=== PATIENT | male | born 1955 | race Caucasian/White ===

== ENCOUNTER 2022-03-05 09:55 | Inpatient (IN) ==
[2022-03-05] MEDS ORDERED: ASPIRIN CHEW 324 MG PO STA (10:09)
[2022-03-05] MEDS ORDERED: SODIUM CHLORIDE 0.9% 500 ML IV STA (10:09)
--- NOTE | 2022-03-05 10:26 | Emergency Department Note ---
Impression & Plan Chest pain, BRYANT (dyspnea on exertion), Symptomatic bradycardia ED Provider Note NAME: CARLOS VIDES AGE: 67 SEX: M : 1955 ARRIVES VIA: Walk-In INFORMANT: Patient, ED PROVIDER(S): Jarvis Porter DO CHIEF COMPLAINT: Shortness of breath HPI: The patient is a 67-year-old male who presented to the emergency department for an evaluation of shortness of breath. The patient states has been noticing shortness of breath with exertion over the course of the last week. He denies having any lower extremity swelling or pain. He has no abdominal pain. He has had no recent illnesses including nausea vomiting or diarrhea. The patient states he also noticed a headache as well as chest pain which went down his left arm today. This is a new symptom for him so he came to the emergency department. He denies having any recent tick bites. He said no recent rashes. He normally states his heart rate is not slow. The patient has no new medications. He has been compliant with his other outpatient medications otherwise. ROS: See above HPI for pertinent positives & negatives. A total of 10 systems reviewed and were otherwise negative. PAST MEDICAL HISTORY: See Below PAST SURGICAL HISTORY: See Below FAMILY HISTORY: See Below SOCIAL HISTORY: See Below HOME MEDICATIONS: See Below ALLERGIES: See Below VITALS: See Below PHYSICAL EXAMINATION: GENERAL: Patient is awake alert in no acute distress patient is resting comfortably and showing no signs of anxiety EYES: The conjunctivae are clear. The pupils are round and reactive. EARS, NOSE, MOUTH AND THROAT: The nose is without any evidence of any deformity. Mucous membranes are moist. Tongue is midline. NECK: The neck is nontender and supple. RESPIRATORY: Normal respiratory effort is noted there is no evidence of wheezing rhonchi or rales CARDIOVASCULAR: Bradycardic heart sounds were noted. There is no definite murmur. Ectopy was noted auscultation. GASTROINTESTINAL: The abdomen is soft. Abdomen is nontender. MUSCULOSKELETAL/EXTREMITIES: There is no evidence of gross deformity full range of motion is noted in the hips and shoulders. SKIN: There is no obvious evidence of any rash. Pedal edema was noted bilaterally. Pulses are symmetric in both wrists and ectopy is being conducted. NEUROLOGIC: Patient is awake alert and oriented x3 MEDICAL DECISION MAKING: The patient is a 67-year-old male who presented to the emergency department because of shortness of breath. The patient was found to have bradycardia with frequent PVCs. I discussed the patient's laboratory and radiographic studies with him. I also discussed the limitations of the emergency room work-up for chest pain with the patient. I discussed his condition with the on-call [facility] cardiology. The patient was evaluated in the emergency department by the [facility] ticker wirer. He was felt to be a good candidate for cardiac catheterization to further evaluate his presentation. I also discussed his case with the on-call [facility] hospitalist group. They have agreed to evaluate the patient for further management and disposition. The patient was resting comfortably. He was treated with aspirin and placed on the transcutaneous pacemaker. Triage Nursing notes reviewed. Prior medical records reviewed Vital Signs: reviewed and remarkable for elevated blood pressure. Differential diagnosis: Reactive airway disease, pneumonia, pneumothorax, COPD, CHF, infections, cardiac ischemia, pulmonary embolism, musculoskeletal, gastrointestinal, as well as other pathologies. ER treatment provided: See below Diagnostics interpreted by me: ECG: EKG was obtained in the emergency department. My interpretation is sinus bradycardia at 62 bpm. Bigeminy was noted. There is no acute ST segment abnormalities noted. This was compared to a tracing from December 06, 2018. The bradycardia is new compared to the previous tracing. Cardiac Monitoring: An order was placed for continuous cardiac monitoring. The monitor shows a rate of 59 bpm with sinus bradycardia and frequent PVCs. Laboratory studies: As stated above and show below. Imaging studies: See below Consultation(s): I discussed this case with Dr. Adorno who is on-call for [facility] cardiology. I discussed this case with Pat who is on for the [facility] hospitalist group. ED COURSE: Procedures: none Critical Care: I have personally spent greater than 35 minutes of critical care time in the direct management of this patient. This includes bedside care, interpretation of diagnostic studies, and testing, discussion with consultants, patient, and family members, and other required patient management activities. This 35 minutes is in excess of all separately billable procedures. Past Med/Surg History Medical History BPH (benign prostatic hyperplasia) Frequent PVCs Cardio evaluation 11/2018. Echo and stress test WNL. Zio monitor done by PCP showed frequent PVCs, 9.2% burden. Cardio to repeat Zio. May initiate BB therapy but not until after surgery. Hx of bladder problems POLYPS Hx of gastroesophageal reflux (GERD) Hyperlipidemia Hypertension Obesity Sleep apnea USES CPAP Surgical History H/O transurethral resection of prostate History of bladder surgery Hx of cystoscopy "SEVERAL" Social History Smoking Status: Never smoker Second Hand Exposure: No; Hx Alcohol Use: No Hx Substance Use: No Preferred Language: Upper Sorbian Communication Ability: Effective Beliefs That Will Affect Care: None Current Living Situation: Spouse Feels Safe at Home: Yes Assistive Devices: Glasses Allergies Allergies Allergy/AdvReac Type Severity Reaction Status Date / Time No Known Allergies Allergy Verified 07/17/20 09:10 Home Meds Home Medications Medication Instructions Recorded Confirmed aspirin 81 mg tablet,delayed 81 mg PO QAM 11/29/18 03/05/22 release (Hanane Low Dose Aspirin) atorvastatin 10 mg tablet 10 mg PO QAM 11/29/18 03/05/22 cyanocobalamin (vitamin B-12) 500 500 mcg PO QAM 11/29/18 03/05/22 mcg tablet (Vitamin B-12) lisinopril 10 mg tablet 10 mg PO QAM 11/29/18 03/05/22 multivitamin 1 tab PO QAM 11/29/18 03/05/22 vitamin E 268 mg (400 unit) capsule 400 unit PO QAM 11/29/18 03/05/22 Results & Data (ED) Vital Signs Vital Signs - 24 hr 03/05/22 10:02 03/05/22 11:17 03/05/22 10:27 Temperature 36.3 C L Temperature Source Temporal Artery Scan Pulse Rate 34 L 64 Pulse Rate [Apical] Pulse Rate from SpO2 Sensor Respiratory Rate 20 19 Respiratory Effort / Characteristics Non-Labored Respiratory Depth Normal Blood Pressure 184/72 H 177/85 H Blood Pressure [Right Arm] Blood Pressure Mean 109 115 Blood Pressure Mean [Right Arm] Pulse Oximetry 95 97 97 Oxygen Delivery Method Room Air Room Air Room Air Sepsis Recent Fever Within 48 Hours No Sepsis New/Unexplained Change in Mental Status N/A Sepsis Action Taken by Nursing No Action Required 03/05/22 10:31 03/05/22 11:00 03/05/22 11:20 Temperature Temperature Source Pulse Rate 66 56 L 55 L Pulse Rate [Apical] Pulse Rate from SpO2 Sensor 63 56 L 61 Respiratory Rate 26 H 19 7 L Respiratory Effort / Characteristics Respiratory Depth Blood Pressure 149/68 H 153/80 H Blood Pressure [Right Arm] Blood Pressure Mean 95 104 Blood Pressure Mean [Right Arm] Pulse Oximetry 96 96 98 Oxygen Delivery Method Room Air Room Air Sepsis Recent Fever Within 48 Hours Sepsis New/Unexplained Change in Mental Status Sepsis Action Taken by Nursing 03/05/22 11:30 03/05/22 11:30 03/05/22 11:40 Temperature Temperature Source Pulse Rate 58 L 64 Pulse Rate [Apical] Pulse Rate from SpO2 Sensor 57 L 55 L Respiratory Rate 21 Respiratory Effort / Characteristics Respiratory Depth Blood Pressure 141/81 H Blood Pressure [Right Arm] Blood Pressure Mean 101 Blood Pressure Mean [Right Arm] Pulse Oximetry 98 97 Oxygen Delivery Method Sepsis Recent Fever Within 48 Hours Sepsis New/Unexplained Change in Mental Status Sepsis Action Taken by Nursing 03/05/22 11:50 03/05/22 12:00 03/05/22 12:02 Temperature Temperature Source Pulse Rate 61 58 L Pulse Rate [Apical] Pulse Rate from SpO2 Sensor 60 63 Respiratory Rate 20 20 Respiratory Effort / Characteristics Respiratory Depth Blood Pressure Blood Pressure [Right Arm] Blood Pressure Mean Blood Pressure Mean [Right Arm] Pulse Oximetry 97 98 96 Oxygen Delivery Method Sepsis Recent Fever Within 48 Hours Sepsis New/Unexplained Change in Mental Status Sepsis Action Taken by Nursing 03/05/22 12:02 03/05/22 12:10 03/05/22 12:20 Temperature Temperature Source Pulse Rate 66 61 Pulse Rate [Apical] Pulse Rate from SpO2 Sensor 70 Respiratory Rate 18 12 Respiratory Effort / Characteristics Respiratory Depth Blood Pressure 168/64 H Blood Pressure [Right Arm] Blood Pressure Mean 98 Blood Pressure Mean [Right Arm] Pulse Oximetry 97 97 Oxygen Delivery Method Sepsis Recent Fever Within 48 Hours Sepsis New/Unexplained Change in Mental Status Sepsis Action Taken by Nursing 03/05/22 12:30 03/05/22 12:30 03/05/22 11:33 Temperature Temperature Source Pulse Rate 59 L Pulse Rate [Apical] 50 L Pulse Rate from SpO2 Sensor 58 L Respiratory Rate 23 20 Respiratory Effort / Characteristics Respiratory Depth Blood Pressure 164/74 H Blood Pressure [Right Arm] 167/63 H Blood Pressure Mean 104 Blood Pressure Mean [Right Arm] 97 Pulse Oximetry 97 96 Oxygen Delivery Method Sepsis Recent Fever Within 48 Hours Sepsis New/Unexplained Change in Mental Status Sepsis Action Taken by Nursing 03/05/22 13:02 Temperature Temperature Source Pulse Rate Pulse Rate [Apical] Pulse Rate from SpO2 Sensor Respiratory Rate Respiratory Effort / Characteristics Respiratory Depth Blood Pressure 164/74 H Blood Pressure [Right Arm] Blood Pressure Mean Blood Pressure Mean [Right Arm] Pulse Oximetry Oxygen Delivery Method Sepsis Recent Fever Within 48 Hours Sepsis New/Unexplained Change in Mental Status Sepsis Action Taken by Custodial Medications Current Medication List: was personally reviewed by me Laboratory Data Attestation: I reviewed the patient's lab results. Result diagrams: 03/05/22 10:19 03/05/22 10:19 Lab Results 03/05/22 03/05/22 03/05/22 Range/Units 10:19 10:19 10:19 WBC 9.19 (4.8-10.8) K/ul RBC 4.86 (4.63-6.08) M/uL Hgb 14.8 (14.0-18.0) g/dl Hct 42.6 (40.1-51.0) % MCV 87.7 (80.0-100.0) fL MCH 30.5 (25.0-34.0) pg MCHC 34.7 (32.0-36.0) g/dL RDW Std Deviation 40.7 (36.4-46.3) fL RDW Coeff of David 12.7 (11.5-14.5) % Plt Count 224 (130-400) K/uL MPV 10.2 (9.4-12.4) fL Immature Gran % (Auto) 0.2 % Neut % (Auto) 57.8 % Lymph % (Auto) 31.4 % Amador % (Auto) 7.2 % Eos % (Auto) 3.0 % Baso % (Auto) 0.4 % Neut # (Auto) 5.30 (1.4-6.5) K/uL Lymph # (Auto) 2.89 (1.2-3.4) K/uL Amador # (Auto) 0.66 (0.24-0.82) K/uL Eos # (Auto) 0.28 (0-0.50) K/uL Baso # (Auto) 0.04 (0-0.2) K/uL Immature Gran # (Auto) 0.02 (0.00-0.02) K/uL PT 11.0 (9.0-12.0) Seconds INR 1.0 (0.9-1.1) APTT 27.2 (21.0-31.0) Seconds PTT Ratio 1.0 Sodium 140 (136-145) mmol/L Potassium 4.0 (3.5-5.1) mmol/L Chloride 107 (98-107) mmol/L Carbon Dioxide 27 (21-32) mmol/L Anion Gap 6 (3-11) BUN 19 (6-23) mg/dl Creatinine 0.90 (0.6-1.4) mg/dl Est Cr Clr Drug Dosing 100.8 ml/min Est GFR ( Amer) 100.6 ml/min Est GFR (Non-Af Amer) 86.8 ml/min BUN/Creatinine Ratio 21.1 H (10-20) Glucose 107 H (70-99(Fasting)) mg/dl Calcium 9.3 (8.5-10.1) mg/dl Magnesium 2.1 (1.7-2.4) mg/dl Total Bilirubin 0.7 (0.2-1.0) mg/dl AST 23 (13-39) U/L ALT 23 (7-52) U/L Alkaline Phosphatase 86 (34-104) U/L Troponin I High Sens 6.2 (0-20) pg/ml Total Protein 7.0 (6.0-8.3) gm/dl Albumin 4.1 (3.4-5.0) gm/dl Globulin 2.9 (2.5-4.0) gm/dl Albumin/Globulin Ratio 1.4 (0.9-2) Lipase 35 (11-82) U/L TSH (0.300-4.500) uIu/ml Lyme Disease IgG Ab (Negative) Lyme Disease IgM Ab (Negative) SARS-CoV-2, RNA, NAAT (NEGATIVE) 03/05/22 03/05/22 03/05/22 Range/Units 10:19 10:19 Unknown WBC (4.8-10.8) K/ul RBC (4.63-6.08) M/uL Hgb (14.0-18.0) g/dl Hct (40.1-51.0) % MCV (80.0-100.0) fL MCH (25.0-34.0) pg MCHC (32.0-36.0) g/dL RDW Std Deviation (36.4-46.3) fL RDW Coeff of David (11.5-14.5) % Plt Count (130-400) K/uL MPV (9.4-12.4) fL Immature Gran % (Auto) % Neut % (Auto) % Lymph % (Auto) % Amador % (Auto) % Eos % (Auto) % Baso % (Auto) % Neut # (Auto) (1.4-6.5) K/uL Lymph # (Auto) (1.2-3.4) K/uL Amador # (Auto) (0.24-0.82) K/uL Eos # (Auto) (0-0.50) K/uL Baso # (Auto) (0-0.2) K/uL Immature Gran # (Auto) (0.00-0.02) K/uL PT (9.0-12.0) Seconds INR (0.9-1.1) APTT (21.0-31.0) Seconds PTT Ratio Sodium (136-145) mmol/L Potassium (3.5-5.1) mmol/L Chloride (98-107) mmol/L Carbon Dioxide (21-32) mmol/L Anion Gap (3-11) BUN (6-23) mg/dl Creatinine (0.6-1.4) mg/dl Est Cr Clr Drug Dosing ml/min Est GFR ( Amer) ml/min Est GFR (Non-Af Amer) ml/min BUN/Creatinine Ratio (10-20) Glucose (70-99(Fasting)) mg/dl Calcium (8.5-10.1) mg/dl Magnesium (1.7-2.4) mg/dl Total Bilirubin (0.2-1.0) mg/dl AST (13-39) U/L ALT (7-52) U/L Alkaline Phosphatase (34-104) U/L Troponin I High Sens (0-20) pg/ml Total Protein (6.0-8.3) gm/dl Albumin (3.4-5.0) gm/dl Globulin (2.5-4.0) gm/dl Albumin/Globulin Ratio (0.9-2) Lipase (11-82) U/L TSH 1.166 (0.300-4.500) uIu/ml Lyme Disease IgG Ab Negative (Negative) Lyme Disease IgM Ab Negative (Negative) SARS-CoV-2, RNA, NAAT NEGATIVE (NEGATIVE) Administered Medications Discontinued Medications Aspirin (Aspirin Chew 324 Mg) 324 mg PO NOW STA Stop: 03/05/22 10:10 Last Admin: 03/05/22 10:26 Dose: 324 mg Documented By: MEL Sodium Chloride (Nss) 500 mls @ 999 mls/hr IV .Q31M STA Stop: 03/05/22 10:39 Last Infusion: 03/05/22 11:46 Dose: 0 mls/hr Documented By: [id number] Admin: 03/05/22 10:27 Dose: 999 mls/hr Documented By: MEL Imaging Data Radiologist's Impression: Chest X-Ray 03/05/22 10:09 XR chest 1V portable CLINICAL HISTORY: Chest Pain TECHNIQUE: Single frontal radiograph of the chest was obtained. Comparison: None available at the time of this dictation. FINDINGS: No lines and tubes are seen. Cardiomegaly is noted. The lungs are clear. No evidence of pleural effusion or pneumothorax. IMPRESSION: No acute chest disease. ACT 112: Negative or not required by law. Electronically signed by: Derian Martinez M.D. 03/05/2022 11:10 AM Discharge Plan Visit Data Chief Complaint: Cardiac Assessment Stated Complaint: SOB, PAIN DOWN ARM, HEADACHE, TIGHTNESS IN CHEST ED Provider: Jarvis Porter Discharge Problem: Chest pain, BRYANT (dyspnea on exertion), Symptomatic bradycardia Patient Disposition: Admitted As Inpatient Discharge Instructions Interventions: ED Discharge Assessment Last Done: 03/05/22 13:02 Forms Stand Alone Forms: [email or web address] Prescriptions Prescriptions: No Action lisinopril 10 mg Tablet 10 mg PO QAM multivitamin Tablet 1 tab PO QAM atorvastatin 10 mg Tablet 10 mg PO QAM aspirin [Hanane Low Dose Aspirin] 81 mg Tablet,Delayed Release (Dr/Ec) 81 mg PO QAM cyanocobalamin (vitamin B-12) [Vitamin B-12] 500 mcg Tablet 500 mcg PO QAM vitamin E 400 unit Capsule 400 unit PO QAM Referrals Referrals: Francoise Huston DO [Primary Care Provider] - : Chest pain Qualifiers: Chest pain type: unspecified Qualified Code(s): R07.9 - Chest pain, unspecified
[2022-03-05 10:48] LABS: Basophils # (auto) 0.04 K/uL (0-0.2); Basophils % (auto) 0.4 %; Eosinophils # (auto) 0.28 K/uL (0-0.50); Hematocrit (blood only) 42.6 % (40.1-51.0); Hemoglobin 14.8 g/dl (14.0-18.0); Immature Granulocytes # (auto) 0.02 K/uL (0.00-0.02); Immature Granulocytes % (auto) 0.2 %; Lymphocytes # (auto) 2.89 K/uL (1.2-3.4); Lymphocytes % (auto) 31.4 %; Mean Corpuscular Hemoglobin 30.5 pg (25.0-34.0); Mean Corpuscular Hgb Conc 34.7 g/dL (32.0-36.0); Mean Corpuscular Volume 87.7 fL (80.0-100.0); Mean Platelet Volume 10.2 fL (9.4-12.4); Monocytes # (auto) 0.66 K/uL (0.24-0.82); Monocytes % (auto) 7.2 %; Neutrophils % (auto) 57.8 %; Platelet Count 224 K/uL (130-400); RDW Coefficient of Variation 12.7 % (11.5-14.5); RDW Standard Deviation 40.7 fL (36.4-46.3); Red Blood Count 4.86 M/uL (4.63-6.08); White Blood Count 9.19 K/ul (4.8-10.8)
[2022-03-05 11:02] LABS: Partial Thromboplastin Time 27.2 Seconds (21.0-31.0)
--- NOTE | 2022-03-05 11:12 | XRay Report ---
XR chest 1V portable CLINICAL HISTORY: Chest Pain TECHNIQUE: Single frontal radiograph of the chest was obtained. Comparison: None available at the time of this dictation. FINDINGS: No lines and tubes are seen. Cardiomegaly is noted. The lungs are clear. No evidence of pleural effus ion or pneumothorax. IMPRESSION: No acute chest disease. ACT 112: Negative or not required by law. Electronically signed by: Derian Martinez M.D. 03/05/2022 11:10 AM
[2022-03-05 11:13] LABS: Albumin Globulin Ratio 1.4 (0.9-2); Albumin Level 4.1 gm/dl (3.4-5.0); BUN Creatinine Ratio 21.1 (10-20); Bilirubin,Total 0.7 mg/dl (0.2-1.0); Calcium 9.3 mg/dl (8.5-10.1); Creatinine Clr Calc Pharmacy 100.8 ml/min; Est GFR (African American) 100.6 ml/min; Est GFR (Non-African American) 86.8 ml/min; Globulin 2.9 gm/dl (2.5-4.0); Magnesium 2.1 mg/dl (1.7-2.4)
[2022-03-05 11:15] LABS: Troponin I High Sensitivity 6.2 pg/ml (0-20)
--- NOTE | 2022-03-05 12:52 | History & Physical Report ---
Date of Service March 05, 2022 Assessment & Plan (1) Symptomatic bradycardia: (2) BRYANT (dyspnea on exertion): (3) Chest pain: (4) Hyperlipidemia: (5) Hypertension: Plan: - Admit to tele - Cardiology consulted, Dr. Adorno planning to take the patient to the OR this afternoon, last time pt ate was at 8:30am, cont NPO - Lymes and tick born panel is negative/pending - Not on any medications which would cause bradycardia, pt took lisinopril, statin and aspirin this morning at home - Trend cardiac biomarkers, initial set was negative - EKG reviewed as above showing bradycardia, appears to be in the mid 30s on review personally, bigeminy causing HR to appear to be in the 60s on reading but is not accurate - Check 2 D echo - Given a full dose aspirin in the ER. - PT/OT consulted - Further recs pending from cardiology for medications (6) Obesity: Plan: - BMI of 38.1, diet and exercise to be encouraged in the ER - Checking am lipid panel and A1C (7) Sleep apnea: Plan: - Cont cpap HS DVT ppx: - teds, scds, post cath add chemical VTE prophylasix CODE: Full code Dispo: From home, proceed to [facility] today, remain in the hospital x 1-2 days History of Present Illness Chief Complaint: Chest heaviness, Left arm pain Primary Care Provider: Francoise Huston DO This is a 67 yo M with PMHx of HLD, who presents with the acute onset of dyspnea on exertion which he noticed 3 days ago on Wednesday. This morning he further developed a left sided arm pain and chest heaviness with the associated shortness of breath while he was sitting down in a recliner. 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 They were visiting together yesterday and he was recommended to have his symptoms checked out. He proceeded to have a routine appointment as an outpatient for CPAP fitting earlier today, however his brought him to the ER instead. He does not wear any other forms of oxygen at baseline. He does not drink alcohol, no tobacco use history, does not exercise routinely. Admits to a strong family history of cardiac issues including mother and father both with CAD, younger sister in her 40s due to cardiac cause, and brother recently had valve replacement surgery earlier this year. Allergies Allergy/AdvReac Type Severity Reaction Status Date / Time No Known Allergies Allergy Verified 07/17/20 09:10 Home Medications Medication Instructions Recorded Confirmed Type aspirin 81 mg tablet,delayed 81 mg PO QAM 11/29/18 03/05/22 History release (Hanane Low Dose Aspirin) atorvastatin 10 mg tablet 10 mg PO QAM 11/29/18 03/05/22 History cyanocobalamin (vitamin B-12) 500 500 mcg PO QAM 11/29/18 03/05/22 History mcg tablet (Vitamin B-12) lisinopril 10 mg tablet 10 mg PO QAM 11/29/18 03/05/22 History multivitamin 1 tab PO QAM 11/29/18 03/05/22 History vitamin E 268 mg (400 unit) capsule 400 unit PO QAM 11/29/18 03/05/22 History Past Med/Surg History Medical History BPH (benign prostatic hyperplasia) Frequent PVCs Cardio evaluation 11/2018. Echo and stress test WNL. Zio monitor done by PCP showed frequent PVCs, 9.2% burden. Cardio to repeat Zio. May initiate BB therapy but not until after surgery. Hx of bladder problems POLYPS Hx of gastroesophageal reflux (GERD) Hyperlipidemia Hypertension Obesity Sleep apnea USES CPAP Surgical History H/O transurethral resection of prostate History of bladder surgery Hx of cystoscopy "SEVERAL" Social History Smoking Status: Never smoker Second Hand Exposure: No; Hx Alcohol Use: No Hx Substance Use: No Preferred Language: Citizen Of [place] Communication Ability: Effective O[place]ielder Required: No Beliefs That Will Affect Care: None Current Living Situation: Spouse Other Information That Helps Us Care for You: No Feels Safe at Home: Yes Safety Concerns: Feels Safe At This Time Assistive Devices: Glasses Review of Systems Review of Systems: Constitutional: No fever, sweats or chills Eyes: No diplopia, no worsening or blurred vision ENT: normal hearing, no trouble swallowing Respiratory: No cough, sputum, dyspnea at rest or on exertion Cardiovascular: As per HPI, + Chest pain and left-sided arm pain now resolved, + mild chest heaviness substernally, nonreproducible on exam Abdomen: No pain, nausea, vomiting, diarrhea or constipation Musculoskeletal: No joint pain, calf pain, swelling Neurologic: No weakness, numbness/tingling, or balance problems Psychiatric: No anxiety or depression Skin: No rash or itch Physical Exam Physical Exam: General: awake, alert, no apparent distress, obese, BMI 38.1 Head: Normocephalic, atraumatic ENT: PERRL, EOMI, no pharyngeal exudate, mucous membranes moist Chest: Clear to auscultation, on room air, no adventitious breath sounds Cardiac: Bradycardic with heart rate in the 30s at bedside, no murmur, no JVD, normal peripheral pulses, good capillary refill Abdominal: + Large vertical ventral hernia, nontender, NABS x 4 quadrants, soft, nondistended, nontender to palpation, no rebound or guarding Extremities: Normal inspection, no peripheral edema or erythema, calfs nontender to palpation Psych: Normal mood and affect Neuro: AAO x 3, strength intact bilaterally and rated 5/5, no motor deficits, speech is clear, no peripheral sensory deficits Results & Data Results & Data ([facility]) Vital Signs (Past 12 Hours) Vital Signs Temp Pulse Resp BP Pulse Ox O2 Del Method 03/05/22 11:00 56 L 19 153/80 H 96 Room Air 03/05/22 10:31 66 26 H 149/68 H 96 Room Air 03/05/22 10:27 64 19 177/85 H 97 Room Air 03/05/22 11:17 97 Room Air 03/05/22 10:02 36.3 C L 34 L 20 184/72 H 95 Room Air Laboratory Results 03/05/22 03/05/22 03/05/22 Unknown 10:19 10:19 WBC RBC Hgb Hct MCV MCH MCHC RDW Std Deviation RDW Coeff of David Plt Count MPV Immature Gran % (Auto) Neut % (Auto) Lymph % (Auto) [place] % (Auto) Eos % (Auto) Baso % (Auto) Neut # (Auto) Lymph # (Auto) [place] # (Auto) Eos # (Auto) Baso # (Auto) Immature Gran # (Auto) PT INR APTT PTT Ratio Sodium 140 Potassium 4.0 Chloride 107 Carbon Dioxide 27 Anion Gap 6 BUN 19 Creatinine 0.90 Est Cr Clr Drug Dosing 100.8 Est GFR ( Amer) 100.6 Est GFR (Non-Af Amer) 86.8 BUN/Creatinine Ratio 21.1 H Glucose 107 H Calcium 9.3 Magnesium 2.1 Total Bilirubin 0.7 AST 23 ALT 23 Alkaline Phosphatase 86 Troponin I High Sens 6.2 Total Protein 7.0 Albumin 4.1 Globulin 2.9 Albumin/Globulin Ratio 1.4 Lipase 35 TSH 1.166 SARS-CoV-2, RNA, NAAT NEGATIVE 03/05/22 03/05/22 10:19 10:19 WBC 9.19 RBC 4.86 Hgb 14.8 Hct 42.6 MCV 87.7 MCH 30.5 MCHC 34.7 RDW Std Deviation 40.7 RDW Coeff of David 12.7 Plt Count 224 MPV 10.2 Immature Gran % (Auto) 0.2 Neut % (Auto) 57.8 Lymph % (Auto) 31.4 [place] % (Auto) 7.2 Eos % (Auto) 3.0 Baso % (Auto) 0.4 Neut # (Auto) 5.30 Lymph # (Auto) 2.89 [place] # (Auto) 0.66 Eos # (Auto) 0.28 Baso # (Auto) 0.04 Immature Gran # (Auto) 0.02 PT 11.0 INR 1.0 APTT 27.2 PTT Ratio 1.0 Sodium Potassium Chloride Carbon Dioxide Anion Gap BUN Creatinine Est Cr Clr Drug Dosing Est GFR ( Amer) Est GFR (Non-Af Amer) BUN/Creatinine Ratio Glucose Calcium Magnesium Total Bilirubin AST ALT Alkaline Phosphatase Troponin I High Sens Total Protein Albumin Globulin Albumin/Globulin Ratio Lipase TSH SARS-CoV-2, RNA, NAAT Diagnostic Findings Chest X-Ray 03/05/22 10:09 XR chest 1V portable CLINICAL HISTORY: Chest Pain TECHNIQUE: Single frontal radiograph of the chest was obtained. Comparison: None available at the time of this dictation. FINDINGS: No lines and tubes are seen. Cardiomegaly is noted. The lungs are clear. No evidence of pleural effusion or pneumothorax. IMPRESSION: No acute chest disease. ACT 112: Negative or not required by law. Electronically signed by: Derian Martinez M.D. 03/05/2022 11:10 AM Code Status & VTE Plan Code Status Full code - Discussed with the patient and his at bedside VTE Prophylaxis Plan VTE Prophylaxis will be ordered: Yes Supervising Physician Co-Signing Physician Notes Pt seen and examined by me, care coordinated w/ G. TREY Arechiga, pls refer to her note above for further detail. Pt is a 67 yo M w/ HTN, HLD, chronic ventricular ectopy/bigeminy, GUME on CPAP who presents with dyspnea on exertion and chest heaviness w/radiation to left arm. Patient carries a strong family hx of cardiac disease and cardiology was consulted for further evaluation. Patient underwent diagnostic coronary angiography earlier today. He tolerated procedure well. Currently laying in bed in no acute distress. At rest denies any chest pain or shortness of breath. He is breathing comfortably on room air, answering questions appropriately. Lungs are clear to auscultation. Heart sounds regular. No obstructive coronary artery disease found on angiography. Systolic function normal with only mild hypokinesis of posterior wall at the base. Suspect hypertensive disease and his lisinopril was increased to 40 mg a day by cardiology. We will continue to monitor on telemetry overnight. MD Indra (1) Chest pain Chest pain type: unspecified Qualified Code(s): R07.9 - Chest pain, unspecified
[2022-03-05 12:57] LABS: Lyme Ab IgG w/WB Rflx Negative (Negative); Lyme Ab IgM w/WB Rflx Negative (Negative)
--- NOTE | 2022-03-05 13:19 | Cardiology Consultation ---
Date of Consultation March 05, 2022 Assessment & Plan (1) Chest pain: (2) BRYANT (dyspnea on exertion): (3) Ventricular bigeminy: (4) Sleep apnea: Plan Patient is a 67-year-old male with with hypertension, hyperlipidemia and chronic ventricular ectopy/bigeminy who was referred for ER evaluation after noting an outpatient clinic symptoms of increasing exertional dyspnea and chest pain radiating down his left arm over the past 3 days. Initial EKG and telemetry revealed bigeminy but no acute ST segment changes. Initial troponins without injury no acute findings on EKG or chest x-ray. No hypoxia on room air I discussed current complaints and findings in detail with patient and . Both noted abrupt change earlier this week and overall exercise tolerance and increase in symptoms. Patient carries a strong familial history of cardiac disease. Last stress testing and evaluation 2018. Study at that time negative but limited by ventricular ectopy Given rest symptoms and abrupt change in tolerance and difficulties with stress testing the setting of bigeminy will refer for diagnostic coronary angiography. Procedure and risks explained in detail to the patient with further recommendations pending the results of study. Anticipate procedure later today History of Present Illness Reason for Consultation: Chest pain radiating down the left arm, shortness of breath Requesting Physician: Dr. Porter History of Present Illness Patient is a 67-year-old male with ongoing issues which include 1. Chronic ventricular ectopy, bigeminy 2. Hypertension 3. Hyperlipidemia 4. Familial history of cardiac disease 5. Obstructive sleep apnea on CPAP 6. Obesity Patient presented acutely to the emergency room after referral from sleep medicine clinic. He notes having been in usual state of health until earlier this week when he began experiencing symptoms of significant dyspnea and intermittent chest discomfort. Symptoms today included chest pain radiating to the left shoulder and down left arm. Patient notes occasional PVCs no syncope or near syncope no fevers chills or unexplained infections. No difficulty taking medications and notes blood pressure is usually controlled. No acute weight loss or gain. Still with chronic sleep disruption issues. No bleeding difficulties Patient is accompanied by his who aids in history On ER presentation telemetry demonstrates sinus rhythm with bigeminy. EKG without acute ST segment changes otherwise Allergies Allergy/AdvReac Type Severity Reaction Status Date / Time No Known Allergies Allergy Verified 07/17/20 09:10 Home Medications Medication Instructions Recorded Confirmed Type aspirin 81 mg tablet,delayed 81 mg PO QAM 06/25/19 09/29/22 History release (Hanane Low Dose Aspirin) atorvastatin 10 mg tablet 10 mg PO QAM 11/29/18 03/05/22 History cyanocobalamin (vitamin B-12) 500 500 mcg PO QAM 11/29/18 03/05/22 History mcg tablet (Vitamin B-12) lisinopril 10 mg tablet 10 mg PO QAM 11/29/18 03/05/22 History multivitamin 1 tab PO QAM 11/29/18 03/05/22 History vitamin E 268 mg (400 unit) capsule 400 unit PO QAM 11/29/18 03/05/22 History Patient History Medical History BPH (benign prostatic hyperplasia) Frequent PVCs Cardio evaluation 11/2018. Echo and stress test WNL. Zio monitor done by PCP showed frequent PVCs, 9.2% burden. Cardio to repeat Zio. May initiate BB therapy but not until after surgery. Hx of bladder problems POLYPS Hx of gastroesophageal reflux (GERD) Hyperlipidemia Hypertension Obesity Sleep apnea USES CPAP Surgical History H/O transurethral resection of prostate History of bladder surgery Hx of cystoscopy "SEVERAL" Social History Smoking Status: Never smoker Second Hand Exposure: No; Hx Alcohol Use: No Hx Substance Use: No Preferred Language: Luxembour[place] Communication Ability: Effective Beliefs That Will Affect Care: None Current Living Situation: Spouse Feels Safe at Home: Yes Assistive Devices: Glasses Review of Systems Review of Systems: All systems reviewed & are unremarkable except as noted in HPI & below Physical Exam Constitutional: WD/WN, vitals as above Eyes: PERRL, conjunctivae normal, anicteric sclerae ENMT: external ear and nose normal, oropharynx normal Neck: trachea midline, no thyromegaly Respiratory: normal respiratory effort, lungs clear to auscultation Cardiovascular: Rate/Rhythm: regular rate and regular rhythm Heart Sounds: normal S1 and normal S2; no gallop and no murmur Palpation: normal PMI Vessels: normal carotid upstroke and radial pulses present; no JVD and no carotid bruit Extremities: no edema Gastrointestinal (Abdomen): normal bowel sounds, soft, nontender, no hepatosplenomegaly Musculoskeletal: no cyanosis or clubbing, extremities motor strength 5/5 Skin: no rashes, warm and dry Neurologic: PERRL, EOMI, accommodation nl, no face palsy, no dysarthria Psychiatric: A+Ox3, euthymic affect Results & Data ([facility]) Vital Signs (Past 12 Hours) Vital Signs Temp Pulse Pulse Resp BP BP Pulse Ox 03/05/22 13:02 164/74 H 03/05/22 11:33 50 L 20 167/63 H 96 03/05/22 12:30 59 L 23 97 03/05/22 12:30 164/74 H 03/05/22 12:20 61 12 97 03/05/22 12:10 66 18 97 03/05/22 12:02 168/64 H 03/05/22 12:02 20 96 03/05/22 12:00 58 L 20 98 03/05/22 11:50 61 97 03/05/22 11:40 64 21 97 03/05/22 11:30 58 L 98 03/05/22 11:30 141/81 H 03/05/22 11:20 55 L 7 L 98 03/05/22 11:00 56 L 19 153/80 H 96 03/05/22 10:31 66 26 H 149/68 H 96 03/05/22 10:27 64 19 177/85 H 97 03/05/22 11:17 97 03/05/22 10:02 36.3 C L 34 L 20 184/72 H 95 O2 Del Method 03/05/22 13:02 03/05/22 11:33 03/05/22 12:30 03/05/22 12:30 03/05/22 12:20 03/05/22 12:10 03/05/22 12:02 03/05/22 12:02 03/05/22 12:00 03/05/22 11:50 03/05/22 11:40 03/05/22 11:30 03/05/22 11:30 03/05/22 11:20 03/05/22 11:00 Room Air 03/05/22 10:31 Room Air 03/05/22 10:27 Room Air 03/05/22 11:17 Room Air 03/05/22 10:02 Room Air Laboratory Results Laboratory Results - last 24 hr 03/05/22 03/05/22 03/05/22 10:19 10:19 10:19 WBC 9.19 RBC 4.86 Hgb 14.8 Hct 42.6 MCV 87.7 MCH 30.5 MCHC 34.7 RDW Std Deviation 40.7 RDW Coeff of David 12.7 Plt Count 224 MPV 10.2 Immature Gran % (Auto) 0.2 Neut % (Auto) 57.8 Lymph % (Auto) 31.4 [place] % (Auto) 7.2 Eos % (Auto) 3.0 Baso % (Auto) 0.4 Neut # (Auto) 5.30 Lymph # (Auto) 2.89 [place] # (Auto) 0.66 Eos # (Auto) 0.28 Baso # (Auto) 0.04 Immature Gran # (Auto) 0.02 PT 11.0 INR 1.0 APTT 27.2 PTT Ratio 1.0 Sodium 140 Potassium 4.0 Chloride 107 Carbon Dioxide 27 Anion Gap 6 BUN 19 Creatinine 0.90 Est Cr Clr Drug Dosing 100.8 Est GFR ( Amer) 100.6 Est GFR (Non-Af Amer) 86.8 BUN/Creatinine Ratio 21.1 H Glucose 107 H Calcium 9.3 Magnesium 2.1 Total Bilirubin 0.7 AST 23 ALT 23 Alkaline Phosphatase 86 Troponin I High Sens 6.2 Total Protein 7.0 Albumin 4.1 Globulin 2.9 Albumin/Globulin Ratio 1.4 Lipase 35 TSH Lyme Disease IgG Ab Lyme Disease IgM Ab SARS-CoV-2, RNA, NAAT 03/05/22 03/05/22 03/05/22 10:19 10:19 Unknown WBC RBC Hgb Hct MCV MCH MCHC RDW Std Deviation RDW Coeff of David Plt Count MPV Immature Gran % (Auto) Neut % (Auto) Lymph % (Auto) [place] % (Auto) Eos % (Auto) Baso % (Auto) Neut # (Auto) Lymph # (Auto) [place] # (Auto) Eos # (Auto) Baso # (Auto) Immature Gran # (Auto) PT INR APTT PTT Ratio Sodium Potassium Chloride Carbon Dioxide Anion Gap BUN Creatinine Est Cr Clr Drug Dosing Est GFR ( Amer) Est GFR (Non-Af Amer) BUN/Creatinine Ratio Glucose Calcium Magnesium Total Bilirubin AST ALT Alkaline Phosphatase Troponin I High Sens Total Protein Albumin Globulin Albumin/Globulin Ratio Lipase TSH 1.166 Lyme Disease IgG Ab Negative Lyme Disease IgM Ab Negative SARS-CoV-2, RNA, NAAT NEGATIVE Diagnostic Findings Echocardiogram per report 09/10/2020 Borderline left hypertrophy with normal left ventricular systolic function mild sclerotic changes of the aortic and mitral valve without stenosis or insufficiency ECG Additional Comments: Sinus rhythm with ventricular bigeminy (1) Chest pain Chest pain type: unspecified Qualified Code(s): R07.9 - Chest pain, unspecified
[2022-03-05] MEDS ORDERED: MIDAZOLAM HCL 1 MG/ML 2ML VIAL ONE (14:35)
[2022-03-05] MEDS ORDERED: fentaNYL citrate 100 MCG/2 ML VIAL ONE (14:35)
[2022-03-05] MEDS ORDERED: HEPARIN (PORCINE) 1000 UNIT/ML 10 ML (CATH LAB USE ONLY) ONE (14:35)
[2022-03-05] MEDS ORDERED: niCARdipine HCL INJ 2.5 MG/ML 10 ML AMP ONE (14:35)
[2022-03-05] MEDS ORDERED: NITROGLYCERIN/D5W 100MCG/ML 20ML SYR ONE (14:36)
--- NOTE | 2022-03-05 14:54 | Pre Anesthesia Assessment ---
Date of Service March 05, 2022 Pre Sedation Assessment Vital Signs Temp Pulse Pulse Resp BP BP Pulse Ox 03/05/22 13:02 164/74 H 03/05/22 11:33 50 L 20 167/63 H 96 03/05/22 12:30 59 L 23 97 03/05/22 12:30 164/74 H 03/05/22 12:20 61 12 97 03/05/22 12:10 66 18 97 03/05/22 12:02 168/64 H 03/05/22 12:02 20 96 03/05/22 12:00 58 L 20 98 03/05/22 11:50 61 97 03/05/22 11:40 64 21 97 03/05/22 11:30 58 L 98 03/05/22 11:30 141/81 H 03/05/22 11:20 55 L 7 L 98 03/05/22 11:00 56 L 19 153/80 H 96 03/05/22 10:31 66 26 H 149/68 H 96 03/05/22 10:27 64 19 177/85 H 97 03/05/22 11:17 97 03/05/22 10:02 36.3 C L 34 L 20 184/72 H 95 O2 Del Method 03/05/22 13:02 03/05/22 11:33 03/05/22 12:30 03/05/22 12:30 03/05/22 12:20 03/05/22 12:10 03/05/22 12:02 03/05/22 12:02 03/05/22 12:00 03/05/22 11:50 03/05/22 11:40 03/05/22 11:30 03/05/22 11:30 03/05/22 11:20 03/05/22 11:00 Room Air 03/05/22 10:31 Room Air 03/05/22 10:27 Room Air 03/05/22 11:17 Room Air 03/05/22 10:02 Room Air Cardiovascular + regular rate, + regular rhythm and + bradycardic + S1 normal and + S2 normal no JVD no edema Respiratory normal respiratory effort, lungs clear to auscultation Pre-Sedation Airway Assessment Smoking Status: Never smoker Hx Sleep Apnea: Yes Short, Thick Neck: Yes Thyromental Distance: < 3.5 Finger Breadths Oral Cavity: + WNL Mallampati Class: III ASA: ASA3 NPO Status Date of Last Intake of Fluids: 03/05/22 Time of Last Intake of Fluids: Date of Last Intake of Solid Food: 03/05/22 Time of Last Intake of Solid Foods: Procedure Planning Contraindications for Sedation: none Current Medications Reviewed: Yes Notes The planned sedation has been discussed with the patient. Informed Consent was obtained. I have identified the patient, determined the appropriateness of sedation and have assessed the patient immediately prior to the procedure. All medicine(s) and interventions are by my order.
--- NOTE | 2022-03-05 15:29 | Post Anesthesia Assessment ---
Date of Service March 05, 2022 Post Sedation Assessment Vital Signs Temp Pulse Pulse Resp BP BP Pulse Ox 03/05/22 13:02 164/74 H 03/05/22 11:33 50 L 20 167/63 H 96 03/05/22 12:30 59 L 23 97 03/05/22 12:30 164/74 H 03/05/22 12:20 61 12 97 03/05/22 12:10 66 18 97 03/05/22 12:02 168/64 H 03/05/22 12:02 20 96 03/05/22 12:00 58 L 20 98 03/05/22 11:50 61 97 03/05/22 11:40 64 21 97 03/05/22 11:30 58 L 98 03/05/22 11:30 141/81 H 03/05/22 11:20 55 L 7 L 98 03/05/22 11:00 56 L 19 153/80 H 96 03/05/22 10:31 66 26 H 149/68 H 96 03/05/22 10:27 64 19 177/85 H 97 03/05/22 11:17 97 03/05/22 10:02 36.3 C L 34 L 20 184/72 H 95 O2 Del Method 03/05/22 13:02 03/05/22 11:33 03/05/22 12:30 03/05/22 12:30 03/05/22 12:20 03/05/22 12:10 03/05/22 12:02 03/05/22 12:02 03/05/22 12:00 03/05/22 11:50 03/05/22 11:40 03/05/22 11:30 03/05/22 11:30 03/05/22 11:20 03/05/22 11:00 Room Air 03/05/22 10:31 Room Air 03/05/22 10:27 Room Air 03/05/22 11:17 Room Air 03/05/22 10:02 Room Air Recovery Score Activity: Moves 4 extremities Respiration: Deep Breath/Cough Circulation: +/-20% PreAnes Value Consciousness: Fully Awake Oxygen Saturation: > 92% On Room Air Discharge Sedation Level of Care: Phase I Post Sedation Plan On clinical assessment, the patient appears to have tolerated the sedation without complications. Patient is recovering as anticipated. Patient will continue to be monitored by nursing and may be discharged when sedation discharge criteria are met per below protocol. Upon Completions of procedure up to 15 minutes continue every 5 minute vital signs and the P.A.R. score; then discharge to a Phase I or Fast Track to Phase II per the following guidelines: * Discharge Patient to appropriate Phase II area if PAR is 8 or greater or return to pre- procedure baseline. The post - procedure orders will be as directed. * If PAR score is less than 8 or not return to pre-procedure baseline then patient will follow Phase I monitoring till PAR is reached for Phase II. The Phase I may be done in procedure room or may call to secure a Phase I area. * If naloxone or flumazenil are used for reversal, hold in Phase I for continued monitoring from when last reversal dose was given for a minimum of 60 minutes or longer pending the nurse and/or physician discretion of patient condition before discharge to Phase II. Please call the Sedation Physician to re-evaluate and complete post-note for discharge to Phase II area. Do NOT discharge from procedure sedation or Phase 1 until post- sedation evaluation note is complete by procedure /sedation MD Sedation Discharge Instructions to be given to the patient at discharge to home.
--- NOTE | 2022-03-05 15:32 | Cardiac Catheterization ---
Cardiac Cath Procedure Brief Procedure Date March 05, 2022 Pre-Procedure Diagnosis Pre-Procedure Diagnosis: Angina AUC Score AUC Score: 8 Procedure(s) Performed Procedure(s) Performed: Coronary Angiography, Left Heart Cath and LV Angiography [employer] Vladimir Adorno MD Estimated Blood Loss Estimated Blood Loss: <15cc Medication(s) Medication(s): Fentanyl (12.5 mcg IV), Heparin (5000 units IV), Lidocaine 1% (Local infiltration access site), Nicardipine (250 mcg intra-arterial after arterial sheath insertion) and Versed (1 mg IV) Preliminary Findings Right dominant coronary anatomy Mild luminal irregularities without obstructive disease Mild hypokinesis of posterior base with otherwise normal LV function Recommendations Recommendations: Medical Therapy and/or Counseling Specimens Specimens: None Fluids (cc crystalloids) Fluids (cc crystalloids): 70 Anesthesia 1805, stop time: 1521 Procedural Complication(s) None Disposition PCU
[2022-03-05] MEDS ORDERED: ACETAMINOPHEN 325 MG TAB PO PRN ×2 (15:33→16:08)
[2022-03-05] MEDS ORDERED: SODIUM CHLORIDE 0.9% 1000ML 1,000 ML IV SCH (15:45)
--- NOTE | 2022-03-05 17:11 | Communication Note ---
Date of Service: March 05, 2022 Patient was seen in the emergency room with symptoms of chest pressure and pain initial concerns were notable for ventricular bigeminy on monitor with artifactually low heart rate. Heart rates 50s and 60s with intermittent bigeminy and no profound bradycardia. Patient did note symptoms of chest pressure and shortness of breath with episodes minimal exertion earlier with radiation to the left arm Patient referred and underwent diagnostic coronary angiography without obstructive coronary disease and normal overall systolic function with only mild hypokinesis of the posterior wall at the base. Similar findings observed on resting echocardiogram suspect component of hypertensive disease. Plan maintain telemetry overnight. Increase lisinopril to 40 mg/day (at home dosing prior to hospitalization 30 mg/day). Will likely need second agent added to regimen Cardiology will follow in [place]
--- NOTE | 2022-03-05 21:45 | Electrocardiogram Report ---
Test Reason : Blood Pressure : / mmHG Vent. Rate : 062 BPM Atrial Rate : 062 BPM P-R Int : 158 ms QRS Dur : 098 ms QT Int : 424 ms P-R-T Axes : 029 064 033 degrees QTc Int : 430 ms Sinus rhythm with frequent Premature ventricular complexes in a pattern of bigeminy Otherwise normal ECG When compared with ECG of 06-DEC-2018 11:59, Premature ventricular complexes are now Present Confirmed by Jabier Valdes ([id number]) on 03/05/2022 9:45:49 PM Referred By: Confirmed By:Jabier Valdes
[2022-03-06 06:41] LABS: Hematocrit (blood only) 40.4 % (40.1-51.0); Hemoglobin 13.9 g/dl (14.0-18.0); Mean Corpuscular Hemoglobin 30.7 pg (25.0-34.0); Mean Corpuscular Hgb Conc 34.4 g/dL (32.0-36.0); Mean Corpuscular Volume 89.2 fL (80.0-100.0); Mean Platelet Volume 9.8 fL (9.4-12.4); Platelet Count 199 K/uL (130-400); RDW Coefficient of Variation 12.8 % (11.5-14.5); RDW Standard Deviation 41.8 fL (36.4-46.3); Red Blood Count 4.53 M/uL (4.63-6.08); White Blood Count 7.41 K/ul (4.8-10.8)
[2022-03-06 07:20] LABS: Albumin Globulin Ratio 1.5 (0.9-2); Albumin Level 3.7 gm/dl (3.4-5.0); BUN Creatinine Ratio 18.1 (10-20); Bilirubin,Total 0.6 mg/dl (0.2-1.0); Calcium 8.4 mg/dl (8.5-10.1); Chol HDL Ratio 2.3 (0-5); Creatinine Clr Calc Pharmacy 109.4 ml/min; Est GFR (African American) 104.1 ml/min; Est GFR (Non-African American) 89.8 ml/min; Globulin 2.4 gm/dl (2.5-4.0); Potassium 4.4 mmol/L (3.5-5.1); Total Protein 6.1 gm/dl (6.0-8.3)
[2022-03-06 07:33] LABS: Estimated Average Glucose 120 mg/dl; Hemoglobin A1C 5.8 % (4.5-5.6)
[2022-03-06] MEDS ORDERED: CYANOCOBALAMIN (B-12) 500 MCG TABLET PO SCH (09:00)
[2022-03-06] MEDS ORDERED: TOCOPHERYL, DL-ALPHA 400 UNITS 180 MG CAP PO SCH (09:00)
[2022-03-06] MEDS ORDERED: ATORVASTATIN 10 MG TAB PO SCH (09:00)
[2022-03-06] MEDS ORDERED: MULTIVITAMIN TAB PO SCH (09:00)
[2022-03-06] MEDS ORDERED: lisinopril 10 MG TAB PO SCH (09:00)
[2022-03-06] MEDS ORDERED: ASPIRIN 81 MG ECTAB PO SCH (09:00)
[2022-03-06] MEDS ORDERED: lisinopril 40 MG TAB PO SCH (09:00)
--- NOTE | 2022-03-06 10:46 | Cardiology Progress Note ---
Date of Service March 06, 2022 Assessment & Plan (1) Chest pain: (2) BRYANT (dyspnea on exertion): (3) Ventricular bigeminy: (4) Sleep apnea: Plan Patient is a 67-year-old male admitted with chest pressure and shortness of breath. Diagnostic coronary angiography without obstructive disease. Chronic ventricular ectopy and bigeminy present. Suspect component of hypertensive heart disease. In discussion with patient he notes taking lisinopril as ordered. But also has an old prescription for furosemide he uses several times a month usually after long trips when he is edematous. Discussed management in detail with patient: He will need hypertension addressed including sodium reduction and weight loss. Continue sleep apnea therapies Lisinopril increased to 40 mg p.o. daily We will add spironolactone 12.5 mg/day, furosemide routinely 20 mg once per week BMP 1 week Cardiology follow-up 2 to 3 weeks Admission and Anticipated Discharge Date Admission Date: March 05, 2022 Subjective Patient seen and examined, chart, medications, telemetry reviewed No acute complaints overnight feels improved. Still occasional sense of breathlessness when lying quietly. No symptoms with exertion. Telemetry reveals sinus rhythm with premature ventricular beats and bigeminy unchanged. No pauses or bradycardia arrhythmias. No dizziness or lightheadedness Review of Systems Review of Systems: All systems reviewed & are unremarkable except as noted in Subjective Physical Exam Constitutional: WD/WN, vitals as above Eyes: PERRL, conjunctivae normal, anicteric sclerae ENMT: external ear and nose normal, oropharynx normal Neck: trachea midline, no thyromegaly + thick neck Respiratory: normal respiratory effort, lungs clear to auscultation Cardiovascular: Rate/Rhythm: regular rate and regular rhythm Heart Sounds: normal S1 and normal S2; no gallop and no murmur Palpation: normal PMI Vessels: normal carotid upstroke and radial pulses present (Catheterization site healing); no JVD and no carotid bruit Extremities: no edema PVCs, bigeminy Gastrointestinal (Abdomen): normal bowel sounds, soft, nontender, no hepatosplenomegaly Musculoskeletal: no cyanosis or clubbing, extremities motor strength 5/5 Skin: no rashes, warm and dry Neurologic: PERRL, EOMI, accommodation nl, no face palsy, no dysarthria Psychiatric: A+Ox3, euthymic affect Results & Data ([facility]) Vital Signs (Past 12 Hours) Vital Signs Temp Pulse Pulse Resp BP Pulse Ox O2 Del Method 03/06/22 07:06 36.6 C 62 18 143/67 H 97 Room Air 03/06/22 03:40 59 L 17 98 03/06/22 02:53 36.5 C 50 L 18 165/73 H 98 Nasal CPAP 03/05/22 23:16 56 L 03/05/22 23:12 36.6 C 56 L 18 137/69 96 Nasal CPAP FiO2 03/06/22 07:06 03/06/22 03:40 21 03/06/22 02:53 03/05/22 23:16 03/05/22 23:12 Laboratory Results Laboratory Results - last 24 hr 03/05/22 03/05/22 03/05/22 10:19 10:19 10:19 WBC 9.19 RBC 4.86 Hgb 14.8 Hct 42.6 MCV 87.7 MCH 30.5 MCHC 34.7 RDW Std Deviation 40.7 RDW Coeff of David 12.7 Plt Count 224 MPV 10.2 Immature Gran % (Auto) 0.2 Neut % (Auto) 57.8 Lymph % (Auto) 31.4 [place] % (Auto) 7.2 Eos % (Auto) 3.0 Baso % (Auto) 0.4 Neut # (Auto) 5.30 Lymph # (Auto) 2.89 [place] # (Auto) 0.66 Eos # (Auto) 0.28 Baso # (Auto) 0.04 Immature Gran # (Auto) 0.02 PT 11.0 INR 1.0 APTT 27.2 PTT Ratio 1.0 Sodium 140 Potassium 4.0 Chloride 107 Carbon Dioxide 27 Anion Gap 6 BUN 19 Creatinine 0.90 Est Cr Clr Drug Dosing 100.8 Est GFR ( Amer) 100.6 Est GFR (Non-Af Amer) 86.8 BUN/Creatinine Ratio 21.1 H Glucose 107 H Estimat Average Glucose Hemoglobin A1c Calcium 9.3 Magnesium 2.1 Total Bilirubin 0.7 AST 23 ALT 23 Alkaline Phosphatase 86 Troponin I High Sens 6.2 Total Protein 7.0 Albumin 4.1 Globulin 2.9 Albumin/Globulin Ratio 1.4 Triglycerides Cholesterol LDL Cholesterol, Calc VLDL Cholesterol, Calc HDL Cholesterol Cholesterol/HDL Ratio Lipase 35 TSH Lyme Disease IgG Ab Lyme Disease IgM Ab SARS-CoV-2, RNA, NAAT 03/05/22 03/05/22 03/05/22 10:19 10:19 16:29 WBC RBC Hgb Hct MCV MCH MCHC RDW Std Deviation RDW Coeff of David Plt Count MPV Immature Gran % (Auto) Neut % (Auto) Lymph % (Auto) [place] % (Auto) Eos % (Auto) Baso % (Auto) Neut # (Auto) Lymph # (Auto) [place] # (Auto) Eos # (Auto) Baso # (Auto) Immature Gran # (Auto) PT INR APTT PTT Ratio Sodium Potassium Chloride Carbon Dioxide Anion Gap BUN Creatinine Est Cr Clr Drug Dosing Est GFR ( Amer) Est GFR (Non-Af Amer) BUN/Creatinine Ratio Glucose Estimat Average Glucose Hemoglobin A1c Calcium Magnesium Total Bilirubin AST ALT Alkaline Phosphatase Troponin I High Sens 10.9 D Total Protein Albumin Globulin Albumin/Globulin Ratio Triglycerides Cholesterol LDL Cholesterol, Calc VLDL Cholesterol, Calc HDL Cholesterol Cholesterol/HDL Ratio Lipase TSH 1.166 Lyme Disease IgG Ab Negative Lyme Disease IgM Ab Negative SARS-CoV-2, RNA, NAAT 03/05/22 03/05/22 03/06/22 21:29 Unknown 06:15 WBC 7.41 RBC 4.53 L Hgb 13.9 L Hct 40.4 MCV 89.2 MCH 30.7 MCHC 34.4 RDW Std Deviation 41.8 RDW Coeff of David 12.8 Plt Count 199 MPV 9.8 Immature Gran % (Auto) Neut % (Auto) Lymph % (Auto) [place] % (Auto) Eos % (Auto) Baso % (Auto) Neut # (Auto) Lymph # (Auto) [place] # (Auto) Eos # (Auto) Baso # (Auto) Immature Gran # (Auto) PT INR APTT PTT Ratio Sodium Potassium Chloride Carbon Dioxide Anion Gap BUN Creatinine Est Cr Clr Drug Dosing Est GFR ( Amer) Est GFR (Non-Af Amer) BUN/Creatinine Ratio Glucose Estimat Average Glucose Hemoglobin A1c Calcium Magnesium Total Bilirubin AST ALT Alkaline Phosphatase Troponin I High Sens 11.2 Total Protein Albumin Globulin Albumin/Globulin Ratio Triglycerides Cholesterol LDL Cholesterol, Calc VLDL Cholesterol, Calc HDL Cholesterol Cholesterol/HDL Ratio Lipase TSH Lyme Disease IgG Ab Lyme Disease IgM Ab SARS-CoV-2, RNA, NAAT NEGATIVE 03/06/22 03/06/22 06:15 06:15 WBC RBC Hgb Hct MCV MCH MCHC RDW Std Deviation RDW Coeff of David Plt Count MPV Immature Gran % (Auto) Neut % (Auto) Lymph % (Auto) [place] % (Auto) Eos % (Auto) Baso % (Auto) Neut # (Auto) Lymph # (Auto) [place] # (Auto) Eos # (Auto) Baso # (Auto) Immature Gran # (Auto) PT INR APTT PTT Ratio Sodium 139 Potassium 4.4 Chloride 108 H Carbon Dioxide 27 Anion Gap 4 BUN 15 Creatinine 0.83 Est Cr Clr Drug Dosing 109.4 Est GFR ( Amer) 104.1 Est GFR (Non-Af Amer) 89.8 BUN/Creatinine Ratio 18.1 Glucose 100 H Estimat Average Glucose 120 Hemoglobin A1c 5.8 H Calcium 8.4 L Magnesium Total Bilirubin 0.6 AST 17 ALT 19 Alkaline Phosphatase 71 Troponin I High Sens Total Protein 6.1 Albumin 3.7 Globulin 2.4 L Albumin/Globulin Ratio 1.5 Triglycerides 102 Cholesterol 113 LDL Cholesterol, Calc 44 VLDL Cholesterol, Calc 20 HDL Cholesterol 49 Cholesterol/HDL Ratio 2.3 Lipase TSH Lyme Disease IgG Ab Lyme Disease IgM Ab SARS-CoV-2, RNA, NAAT (1) Chest pain Chest pain type: unspecified Qualified Code(s): R07.9 - Chest pain, unspecified
--- NOTE | 2022-03-06 10:48 | Cardiac Catheterization ---
Cardiac Cath Procedure Full Procedure Date March 06, 2022 Pre-Procedure Diagnosis Pre-Procedure Diagnosis: Angina AUC Score AUC Score: 8 Post-Procedure Diagnosis Post-Procedure Diagnosis: Mild CAD Procedure(s) Performed Procedure(s) Performed: Coronary Angiography, Left Heart Cath and LV Angiography Visiting Nurse Vladimir Adorno MD Estimated Blood Loss Estimated Blood Loss: <15cc Medication(s) Medication(s): Fentanyl (12.5 mcg IV), Heparin (5000 units IV), Lidocaine 1% (Local infiltration access site), Nicardipine (250 mcg intra-arterial after arterial sheath insertion) and Versed (1 mg IV) Summary of Findings Right dominant coronary anatomy Mild luminal irregularities without obstructive disease Mild hypokinesis of posterior base with otherwise normal LV function Recommendations Recommendations: Medical Therapy and/or Counseling Specimens Specimens: None Fluids (cc crystalloids) Fluids (cc crystalloids): 70 Anesthesia 1805, stop time: 1521 Procedural Complication(s) None Disposition PCU I attest to the content of the Intraoperative Record and any orders documented therein. Any exceptions are noted below. ACC Data: Revenue Director Cardiac Status Clinical evaluation leading to the procedure Diagnostic Physicians Name: Vladimir Adorno MD Closure Device Recommendations: Medical Therapy and/or Counseling
--- NOTE | 2022-03-06 13:45 | Cardiac Catheterization ---
Cardiac Cath Procedure Full Procedure Date March 06, 2022 Pre-Procedure Diagnosis Pre-Procedure Diagnosis: Angina AUC Score AUC Score: 8 Post-Procedure Diagnosis Post-Procedure Diagnosis: Mild CAD Procedure(s) Performed Procedure(s) Performed: Coronary Angiography, Left Heart Cath and LV Angiography Auto Design Detailer Vladimir Adorno MD Cost Specialist(s) [facility] Estimated Blood Loss Estimated Blood Loss: <15cc Medication(s) Medication(s): Fentanyl (12.5 mcg IV), Heparin (5000 units IV), Lidocaine 1% (Local infiltration access site), Nicardipine (250 mcg intra-arterial after arterial sheath insertion) and Versed (1 mg IV) Summary of Findings Right dominant coronary anatomy Mild luminal irregularities without obstructive disease Mild hypokinesis of posterior base with otherwise normal LV function Hemodynamics Rest Ao:: 127/57/84 Final Ao: 129/58/80 LV: 154/0/6 Recommendations Recommendations: Medical Therapy and/or Counseling Specimens Specimens: None Radiation Exposure (mGy) 1341 Contrast (mls) 105 Fluids (cc crystalloids) Fluids (cc crystalloids): 70 Anesthesia 1805, stop time: 1521 Procedural Complication(s) None Disposition PCU I attest to the content of the Intraoperative Record and any orders documented therein. Any exceptions are noted below. 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 Cardiac Status Clinical evaluation leading to the procedure CAD Presenation: Stable angina Cardiogenic Shock within 24 Hours: No Cardiac Arrest within 24 Hours: No Imaging Studies Past 6 Months: Yes Stress Studies Past 6 Months: No Standard Exercise Test: No Stress Echocardiogram: No Stress Testing w/SPECT MPI: No Cardiac CTA: No Coronary Anatomy Dominant: Right Left Main (% Stenosis): Normal (Short) LAD (% Stenosis): Mid (Mild irregularities) D1 (% Stenosis): Normal Circumflex (% Stenosis): Normal (Very large atrial branch) OM1 (% Stenosis): Normal RCA (% Stenosis): Proximal (30%) and Mid (Mild irregularities) R PDA (% Stenosis): Normal R PL1 (% Stenosis): Mid (Small with moderate irregularities) Left Ventricular Angiography EF (%): 60 Wall Motion: Inferior (Subtle hypokinesis inferior base) Mitral Regurgitation: None Diagnostic Physicians Name: Vladimir Adorno MD Closure Device Recommendations: Medical Therapy and/or Counseling
[2022-03-06] MEDS ORDERED: amLODIPine BESYLATE 5 MG TAB PO ONE (15:11)
--- NOTE | 2022-03-06 16:48 | Hospitalist Progress Note ---
Date of Service March 06, 2022 Assessment & Plan (1) Chest pain: (2) Hypertension: Plan: Per admitting service notes with addendum: Patient presenting with chest pain in the setting of uncontrolled blood pressure 03/06/2022: Status post cardiac cath by Dr. Vladimir Adorno Right dominant coronary anatomy Mild luminal irregularities without obstructive disease Mild hypokinesis of posterior base with otherwise normal LV function Dr. Adorno recommendations: Increase lisinopril from 10 to 40 mg p.o. daily Start Aldactone 12.5 mg p.o. daily, and Lasix 20 g p.o. every week Follow-up with PCP in 1 week Follow-up with diesel inspector in 2 to 3 weeks (3) Obesity: Plan: - BMI of 38.1, diet and exercise to be encouraged in the ER A1c 5.8 Follow-up with PCP (4) Sleep apnea: Plan: - Cont cpap HS Disposition Discharge to home Follow-up with PCP in 1 week Follow-up with diesel inspector in 2 to 3 weeks Plan of care discussed with patient and his at the bedside All questions answered They are understanding, agreeable, comfortable with plan of care Admission and Anticipated Discharge Date Admission Date: March 05, 2022 Subjective Follow-up for chest pain, uncontrolled hypertension, etc. Seen resting in bed, comfortable, sitting up, in good spirits Patient's at bedside visiting States he feels fine overall No recurrence of chest pain, shortness of breath, palpitations, dizziness No fevers or chills, abdominal pain, urination problems Ambulating in the room with no problems No other symptoms After physical therapy evaluation, walking in the hallways, repeat blood pressure was systolic 180s Asymptomatic Given Norvasc 5 mg p.o. 1 dose Blood pressure improved to systolic 160s Asymptomatic Review of Systems Review of Systems: all noted and negative except for above Physical Exam Physical Exam: General- oriented x 3, not in distress, speaks in sentences with no effort or accessory muscle use Head- atraumatic Eyes- PERRL, EOMI, anicteric ENT- oropharynx clear Neck- supple, no JVD, no adenopathy, no thyromegaly; carotids +2/2, no bruits appreciated Lungs- clear to auscultation bilaterally, no rales/wheezes Heart- normal rate, regular rhythm; no murmur, no gallop, no rub appreciated Abdomen- normal bowel sounds, nondistended, soft, nontender, no masses or hepatosplenomegaly Extremities- no pretibial edema, no calf tenderness; peripheral pulses intact Neuro- alert, oriented x 3; CN 2-12 grossly intact; motor 5/5 bilaterally;sensation 100% on all extremities; no other gross focal neurologic deficits Skin- warm & dry Results & Data Results & Data ([facility]) Vital Signs (Past 12 Hours) Vital Signs Temp Pulse Pulse Resp BP Pulse Ox O2 Del Method 03/06/22 16:20 52 L 163/81 H 03/06/22 14:20 67 03/06/22 15:06 36.6 C 61 17 160/72 H 94 Room Air 03/06/22 14:47 36.6 C 62 17 143/66 H 98 03/06/22 11:10 36.6 C 62 17 143/66 H 98 Room Air 03/06/22 06:56 66 03/06/22 07:06 36.6 C 62 18 143/67 H 97 Room Air all noted and reviewed including below (1) Chest pain Chest pain type: unspecified Qualified Code(s): R07.9 - Chest pain, unspecified
--- NOTE | 2022-03-16 08:46 | Cardiac Catheterization ---
Cardiac Cath Procedure Full Procedure Date March 06, 2022 Pre-Procedure Diagnosis Pre-Procedure Diagnosis: Angina AUC Score AUC Score: 8 Post-Procedure Diagnosis Post-Procedure Diagnosis: Mild CAD Procedure(s) Performed Procedure(s) Performed: Coronary Angiography, Left Heart Cath and LV Angiography Router Operator Vladimir Adorno MD Weight Trainer(s) [facility] Estimated Blood Loss Estimated Blood Loss: <15cc Medication(s) Medication(s): Fentanyl (12.5 mcg IV), Heparin (5000 units IV), Lidocaine 1% (Local infiltration access site), Nicardipine (250 mcg intra-arterial after arterial sheath insertion) and Versed (1 mg IV) Summary of Findings Impression: Right dominant coronary anatomy Mild luminal irregularities without obstructive disease Mild hypokinesis of posterior base with otherwise normal LV function Hemodynamics Rest Ao:: 127/57/84 Final Ao: 129/58/80 LV: 154/0/6 Recommendations Recommendations: Medical Therapy and/or Counseling Specimens Specimens: None Radiation Exposure (mGy) 1321 Contrast (mls) 105 Fluids (cc crystalloids) Fluids (cc crystalloids): 70 Anesthesia start time 1505, stop time: 1521 Procedural Complication(s) None Disposition PCU I attest to the content of the Intraoperative Record and any orders documented therein. Any exceptions are noted below. ACC Data: Surface Lay Out Technician Cardiac Status Clinical evaluation leading to the procedure CAD Presenation: Stable angina Anginal Classification: CCS III Cardiogenic Shock within 24 Hours: No Cardiac Arrest within 24 Hours: No Imaging Studies Past 6 Months: Yes Stress Studies Past 6 Months: No Standard Exercise Test: No Stress Echocardiogram: No Stress Testing w/SPECT MPI: No Cardiac CTA: No Coronary Anatomy Dominant: Right Left Main (% Stenosis): Normal ( Short) LAD (% Stenosis): Mid ( mild irregularities) D1 (% Stenosis): Normal Circumflex (% Stenosis): Normal ( with very large atrial branch) OM1 (% Stenosis): Normal RCA (% Stenosis): Proximal ( 30%) and Mid ( mild irregularities) R PDA (% Stenosis): Normal R PL1 (% Stenosis): Normal Left Ventricular Angiography EF (%): 60 Wall Motion: Inferior ( subtle hypokinesis inferior base) Mitral Regurgitation: None Diagnostic Physicians Name: Vladimir Adorno MD Status: Urgent Closure Device Percutaneous Entry Location: Radial Closure Device: Radial Band Recommendations: Medical Therapy and/or Counseling
--- NOTE | 2022-03-23 13:11 | Discharge Summary ---
Discharge Summary Date of Service delayed entry date of service 03/06/2022 Notes For Next Care Provider Medication Changes From Visit Increase lisinopril from 10 to 40 mg p.o. daily Start Aldactone 12.5 mg p.o. daily, and Lasix 20 g p.o. every week Admission HPI Per Admitting Provider This is a 67 yo M with PMHx of HLD, who presents with the acute onset of dyspnea on exertion which he noticed 3 days ago on Wednesday. This morning he further developed a left sided arm pain and chest heaviness with the associated shortness of breath while he was sitting down in a recliner. 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 They were visiting together yesterday and he was recommended to have his symptoms checked out. He proceeded to have a routine appointment as an outpatient for CPAP fitting earlier today, however his brought him to the ER instead. He does not wear any other forms of oxygen at baseline. He does not drink alcohol, no tobacco use history, does not exercise routinely. Admits to a strong family history of cardiac issues including mother and father both with CAD, younger sister in her 40s due to cardiac cause, and brother recently had valve replacement surgery earlier this year. Admission Exam Per Admitting Provider General: awake, alert, no apparent distress, obese, BMI 38.1 Head: Normocephalic, atraumatic ENT: PERRL, EOMI, no pharyngeal exudate, mucous membranes moist Chest: Clear to auscultation, on room air, no adventitious breath sounds Cardiac: Bradycardic with heart rate in the 30s at bedside, no murmur, no JVD, normal peripheral pulses, good capillary refill Abdominal: + Large vertical ventral hernia, nontender, NABS x 4 quadrants, soft, nondistended, nontender to palpation, no rebound or guarding Extremities: Normal inspection, no peripheral edema or erythema, calfs nontender to palpation Psych: Normal mood and affect Neuro: AAO x 3, strength intact bilaterally and rated 5/5, no motor deficits, speech is clear, no peripheral sensory deficits Principal Dx & Hospital Course #1 = Principal Diagnosis (1) Chest pain: (2) Hypertension: Per admitting service notes with addendum: Patient presenting with chest pain in the setting of uncontrolled blood pressure 03/06/2022: Status post cardiac cath by Dr. Vladimir Adorno Right dominant coronary anatomy Mild luminal irregularities without obstructive disease Mild hypokinesis of posterior base with otherwise normal LV function Dr. Adorno recommendations: Increase lisinopril from 10 to 40 mg p.o. daily Start Aldactone 12.5 mg p.o. daily, and Lasix 20 g p.o. every week Follow-up with PCP in 1 week Follow-up with maintenance mechanic helper in 2 to 3 weeks (3) Obesity: - BMI of 38.1, diet and exercise to be encouraged in the ER A1c 5.8 Follow-up with PCP (4) Sleep apnea: - Cont cpap HS Disposition Discharge to home Follow-up with PCP in 1 week Follow-up with maintenance mechanic helper in 2 to 3 weeks Plan of care discussed with patient and his at the bedside All questions answered They are understanding, agreeable, comfortable with plan of care Discharge Exam General- oriented x 3, not in distress, speaks in sentences with no effort or accessory muscle use Head- atraumatic Eyes- PERRL, EOMI, anicteric ENT- oropharynx clear Neck- supple, no JVD, no adenopathy, no thyromegaly; carotids +2/2, no bruits appreciated Lungs- clear to auscultation bilaterally, no rales/wheezes Heart- normal rate, regular rhythm; no murmur, no gallop, no rub appreciated Abdomen- normal bowel sounds, nondistended, soft, nontender, no masses or hepatosplenomegaly Extremities- no pretibial edema, no calf tenderness; peripheral pulses intact Neuro- alert, oriented x 3; CN 2-12 grossly intact; motor 5/5 bilaterally;sensation 100% on all extremities; no other gross focal neurologic deficits Skin- warm & dry Updated Medication List Medication Instructions Recorded Confirmed Type aspirin 81 mg tablet,delayed 81 mg PO QAM 11/29/18 03/05/22 History release ([facility] Low Dose Aspirin) atorvastatin 10 mg tablet 10 mg PO QAM 11/29/18 03/05/22 History cyanocobalamin (vitamin B-12) 500 500 mcg PO QAM 11/29/18 03/05/22 History mcg tablet (Vitamin B-12) multivitamin 1 tab PO QAM 11/29/18 03/05/22 History vitamin E 268 mg (400 unit) capsule 400 unit PO QAM 11/29/18 03/05/22 History furosemide 20 mg tablet (Lasix) 20 mg PO Q7D #12 tabs 03/06/22 Rx lisinopril 40 mg tablet (Zestril) 40 mg PO QAM 30 days #30 tabs 03/06/22 Rx spironolactone 25 mg tablet 12.5 mg PO DAILY #30 tabs 03/06/22 Rx (Aldactone) Hospital Stay Data Consultations 03/05/22 11:44 Consult Cardiology Stat 03/05/22 11:46 ED Decision to Admit Stat 03/05/22 16:08 Consult Cardiology Routine Procedures Performed Operation Date: 03/05/22 13:00 Actual Procedures p Cineradiography w/Routine Exam - Vladimir Adorno MD p Cath, Left with Cors and Vent - Vladimir Adorno MD Diagnostic Imagining Performed 03/05/22 12:14 CL Cath Imgs for PACS use only Stat Pending Results Patient Have Any Pending Studies at Discharge: No Discharge Instructions Given to Patient (Per Discharging Provider) PLEASE REFER TO YOUR NEW MEDICATION LIST AND FOLLOW INSTRUCTIONS CAREFULLY. YOUR NEW MEDICATIONS INCLUDE: INCREASE LISINOPRIL TO 40MG DAILY. START ALDACTONE 12.5 MG DAILY, AND LASIX 20MG ONCE A WEEK. (BOTH TO BE STARTED ON Wednesday03/08/22). PLEASE CALL YOUR PRIMARY CARE PHYSICIAN OR RETURN TO THE ER IF WITH WORSENING OF SYMPTOMS, INCLUDING CHEST PAIN, SHORTNESS OF BREATH, WEAKNESS, PALPITATIONS. FOLLOW UP WITH PRIMARY CARE PHYSICIAN IN [address]LLOW UP WITH DR. ADORNO IN 2 WEEKS. Total Time Total Time Spent Total Time Spent (In Minutes): >30 minutes
== END 2022-03-06 16:40 | disposition home or self-care (01) | DRG 287 ==
LOC: ED 09:55 → CC 16:04 → 2S 16:07 → SUATTDRO 16:07 → 2S 16:12